=== PATIENT | female | born 1980 | race Caucasian/White ===

== ENCOUNTER 2019-08-03 17:50 | Emergency (ER) | payer OTHER ==
--- NOTE | 2019-08-03 19:16 | EDM.PDOC ---
ED HPI GENERAL MEDICAL PROBLEM - General Chief Complaint: Abdominal Pain Stated Complaint: STOMACH PAIN Time Seen by Provider: 08/03/19 19:11 Source of Information: Reports: Patient History Limitations: Reports: No Limitations - History of Present Illness INITIAL COMMENTS - FREE TEXT/NARRATIVE: 89-year-old female presents the ED with a 2 day history of intermittent severe abdominal cramping pain associated with yellow high-volume diarrhea stool loss. Associated nausea with no vomiting. Diarrhea improved today after taking Imodium AD earlier this am. Cramps have returned tonight and her much worse than they were. They seem to return about every one half hour. No blood in the diarrhea. Has not been able to eat all day. Did not eat much yesterday. Feels weak dizzy and lightheaded with standing. Previous abdominal surgery is that of a cholecystectomy appendectomy and 3. And is usually normal. 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 Onset: Sudden Onset Date: 08/02/19 Duration: Day(s):, Colic, Getting Worse, Intermittent Location: Reports: Abdomen Quality: Reports: Ache, Sharp, Stabbing, Other (On intermittent colicky midabdominal pain and left lower quadrant abdominal pain.) Severity: Moderate (8 out of 10 when the pain is severe.) Improves with: Reports: Medication Worsens with: Reports: None Context: Reports: Sick Contact. Denies: Activity, Exercise, Lifting, Trauma, Other (Children at the daycare center that she works at.) Associated Symptoms: Reports: Fever/Chills, Loss of Appetite, Malaise, Nausea/ Vomiting, Weakness (Diarrhea lightheaded and dizzy with standing), Other. 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 (see below) (Imodium A-D when necessary) Abdomen Pain Score (Numeric/FACES): 10 - Related Data Allergies Allergy/AdvReac Type Severity Reaction Status Date / Time amoxicillin [Amoxicillin] Allergy Hives Verified 08/03/19 18:28 clindamycin Allergy Burning Verified 08/03/19 18:28 codeine Allergy Hives Verified 08/03/19 18:28 Penicillins Allergy Hives Verified 08/03/19 18:28 venom-honey bee Allergy Anaphylactic Verified 08/03/19 18:28 [bee venom (honey bee)] Shock Home Meds: Home Meds Levothyroxine Sodium [Synthroid] 75 mcg PO DAILY 02/23/14 [History] EPINEPHrine [Epipen] 0.3 mg IM ASDIRECTED PRN #1 pen 03/28/14 [Rx] Dicyclomine [Bentyl] 20 mg PO Q6H PRN #12 tablet 08/03/19 [Rx] Omeprazole Magnesium [Prilosec Otc] 20 mg PO DAILY 08/03/19 [History] 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: Endocrine/Metabolic History: Reports: Hypothyroidism - Infectious Disease History Infectious Disease History: Reports: Chicken Pox - Past Surgical History HEENT Surgical History: Reports: Adenoidectomy, Myringotomy w Tube(s), Tonsillectomy GI Surgical History: Reports: Appendectomy, Cholecystectomy Female Surgical History: Reports: Section (3.), Other (See Below) Other Female Surgeries/Procedures: cervical biopsy Musculoskeletal Surgical History: Reports: Shoulder Surgery Social & Family History - Family History Family Medical History: Noncontributory - Tobacco Use Smoking Status *Q: Never Smoker Second Hand Smoke Exposure: No - Caffeine Use Caffeine Use: Reports: Soda - Recreational Drug Use Recreational Drug Use: Yes - Living Situation & Occupation Living situation: Reports: Occupation: Employed ED ROS GENERAL - Review of Systems Review Of Systems: See Below Constitutional: Reports: Chills, Malaise, Weakness, Fatigue, Decreased Appetite HEENT: Reports: No Symptoms Respiratory: Reports: No Symptoms Cardiovascular: Reports: No Symptoms Endocrine: Reports: Fatigue GI/Abdominal: Reports: Abdominal Pain, Diarrhea (See history of present illness) , Nausea. Denies: Hematochezia, Vomiting : Reports: No Symptoms Musculoskeletal: Reports: Other (Treatment lower extremity cramping pain for several weeks predating the current illness) Skin: Reports: No Symptoms Neurological: Reports: No Symptoms Psychiatric: Reports: No Symptoms Hematologic/Lymphatic: Reports: No Symptoms Immunologic: Reports: No Symptoms ED EXAM, GI/ABD - Physical Exam Exam: See Below Exam Limited By: No Limitations General Appearance: Alert, WD/WN, No Apparent Distress, Other (Vital signs show she is afebrile at 37.1. Rate is 89 and sinus. Respiratory is 19 pulse ox 100% BP 146/95.) Eyes: Bilateral: Normal Appearance Throat/Mouth: Other (No scleral icterus or for pallor.) Head: Atraumatic ( Tongue is mildly dry and coated), Normocephalic Neck: Normal Inspection, Supple, Non-Tender, Full Range of Motion. No: Lymphadenopathy (L), Lymphadenopathy (R) Respiratory/Chest: No Respiratory Distress, Lungs Clear, Normal Breath Sounds, Chest Non-Tender Cardiovascular: Normal Peripheral Pulses, Regular Rate, Rhythm, No Edema, No Gallop, No Murmur, No Rub GI/Abdominal Exam: Normal Bowel Sounds, Soft, Tender. No: Guarding, Rigid, Rebound (Ali tender left lower quadrant without rebound or guarding) Extremities: Normal Inspection, Normal Range of Motion, Non-Tender Neurological: Alert, Oriented, CN II-XII Intact, Normal Cognition Psychiatric: Normal Affect, Normal Mood Skin Exam: Warm, Dry, Intact, Normal Color, No Rash Course - Vital Signs Last Recorded V/S: Last Vital Signs Temp 37.1 C 08/03/19 18:26 Pulse 89 08/03/19 18:26 Resp 19 08/03/19 18:26 BP 146/95 H 08/03/19 18:26 Pulse Ox 100 08/03/19 18:26 Orthostatic Blood Pressure [ 132/101 Standing] Orthostatic Blood Pressure [ 132/88 Sitting] Orthostatic Blood Pressure [ 108/67 Supine] - Orders/Labs/Meds Orders: Active Orders 24 hr Category Date Time Status Orthostatic Vital Signs [RC] ASDIRECTED Care 08/03/19 19:20 Active Abdomen 1V Flat [CR] Stat Exams 08/03/19 19:18 Taken Dextrose 5%-0.9% NaCl [Dextrose 5%-Normal Saline] 1,000 Med 08/03/19 19:30 Active ml IV ASDIRECTED Ketorolac [Toradol] Med 08/03/19 19:30 Active 30 mg IVPUSH ONETIME Medication Orders Dextrose/Sodium Chloride (Dextrose 5%-Normal Saline) 1,000 mls @ 999 mls/hr IV ASDIRECTED OLIVER Last Admin: 08/03/19 20:11 Dose: 500 mls/hr Ketorolac Tromethamine (Toradol) 30 mg IVPUSH ONETIME OLIVER Last Admin: 08/03/19 20:10 Dose: 30 mg Labs: Laboratory Tests 08/03/19 08/03/19 08/03/19 Range/Units 20:04 20:04 20:04 WBC 8.82 (3.98-10.04) K/mm3 RBC 4.87 (3.98-5.22) M/mm3 Hgb 14.6 (11.2-15.7) gm/dl Hct 44.8 (34.1-44.9) % MCV 92.0 (79.4-94.8) fl MCH 30.0 (25.6-32.2) pg MCHC 32.6 (32.2-35.5) g/dl RDW Std Deviation 46.1 (36.4-46.3) fL Plt Count 269 (182-369) K/mm3 MPV 10.0 (9.4-12.3) fl Neut % (Auto) 59.5 (34.0-71.1) % Lymph % (Auto) 29.0 (19.3-51.7) % Yell % (Auto) 11.0 (4.7-12.5) % Eos % (Auto) 0.3 L (0.7-5.8) Baso % (Auto) 0.1 (0.1-1.2) % Neut # (Auto) 5.24 (1.56-6.13) K/mm3 Lymph # (Auto) 2.56 (1.18-3.74) K/mm3 Yell # (Auto) 0.97 H (0.24-0.36) K/mm3 Eos # (Auto) 0.03 L (0.04-0.36) K/mm3 Baso # (Auto) 0.01 (0.01-0.08) K/mm3 Sodium 141 (136-145) mEq/L Potassium 3.8 (3.5-5.1) mEq/L Chloride 105 (98-107) mEq/L Carbon Dioxide 24 (21-32) mEq/L Anion Gap 15.8 H (5-15) BUN 9 (7-18) mg/dL Creatinine 0.8 (0.55-1.02) mg/dL Est Cr Clr Drug Dosing 89.26 mL/min Estimated GFR (MDRD) > 60 (>60) mL/min BUN/Creatinine Ratio 11.3 L (14-18) Glucose 98 (74-106) mg/dL Calcium 8.9 (8.5-10.1) mg/dL Magnesium 1.9 (1.8-2.4) mg/dl Total Bilirubin 0.4 (0.2-1.0) mg/dL AST 164 H (15-37) U/L ALT 113 H (14-59) U/L Alkaline Phosphatase 69 (46-116) U/L C-Reactive Protein 1.3 H* (<1.0) mg/dL Total Protein 7.3 (6.4-8.2) g/dl Albumin 3.5 (3.4-5.0) g/dl Globulin 3.8 gm/dL Albumin/Globulin Ratio 0.9 L (1-2) Lipase 62 L (73-393) U/L Meds: Medications Generic Name Dose Route Start Last Admin Trade Name Frevalerie PRN Reason Stop Dose Admin Dextrose/Sodium Chloride 1,000 mls @ 999 mls/hr 08/03/19 19:30 08/03/19 20:11 Dextrose 5%-Normal Saline IV 500 mls/hr ASDIRECTED OLIVER Administration Ketorolac Tromethamine 30 mg 08/03/19 19:30 08/03/19 20:10 Toradol IVPUSH 30 mg ONETIME OLIVER Administration Discontinued Medications Generic Name Dose Route Start Last Admin Trade Name Frevalerie PRN Reason Stop Dose Admin Dicyclomine HCl 20 mg 08/03/19 21:29 08/03/19 21:56 Bentyl PO 08/03/19 21:30 20 mg ONETIME ONE Administration Hydromorphone HCl 1 mg 08/03/19 21:28 08/03/19 21:56 Dilaudid IVPUSH 08/03/19 21:29 1 mg ONETIME ONE Administration Ondansetron HCl 4 mg 08/03/19 19:19 08/03/19 20:11 Zofran IVPUSH 08/03/19 19:20 4 mg ONETIME ONE Administration - Radiology Interpretation Free Text/Narrative:: 39-year-old female attends the ER with her . She admits that she's been ill for the last 2 days with quite severe diarrhea yesterday i.e. large-volume yellow water stool losses which continues today. Associated intermittent severe abdominal cramping pain about every 30 minutes. Has not been able to eat much or drink much at all for 2 days. Diarrhea improved transiently after taking Imodium AD this morning and some Pepto-Bismol tonight. Social mild chills but no fever. 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 Plan orthostatic BP. IV D5 normal saline at open. Zofran 4 mg IV with Toradol 30 mg IV relief. One of the abdomen to be obtained with routine labs. - Re-Assessments/Exams Free Text/Narrative Re-Assessment/Exam: 08/03/19 20:49 Labs reveal a normal white count at 8.82. Operative shows 59% neutrophils. Hemoglobin is 14.6 with hematocrit of 44.8. He platelet count is 269,000. Sodium was 141 with potassium of 3.8 chloride 105 with a bicarbonate of 24. And a gap is minimally elevated at 15.8. BUNs 9 with a creatinine of 0.8. EGFR is greater than 60. Glucose is 98. Calcium was 8.9. Magnesium is normal at 1.9 Total bilirubin is 0.4 with an AST slightly elevated 164 and ALT of 113. Alk phosphatase is normal at 69. C-reactive protein is 1.3. Total protein is 7.3 with an albumin fraction of 3.5. Lipase is normal at 62. IV fluids are running at 500 mils per hour as the nurses only able to establish a 22-gauge IV. I will allow her to complete a full liter of IV fluids. Abdominal x -ray reveals some subtle stool in the right hemicolon but no signs of significant constipation. The remainder the colon contains air with no signs of bowel obstruction. There is evidence of contrast in the right hemicolon from previous contrast study of the abdomen. 08/03/19 21:59 Patient has completed a liter of IV fluids. She still experiencing intermittent abdominal cramping pain and therefore was given Dilaudid 1 mg IV for further pain relief. I'm going to give her Bentyl 20 mg by mouth as well. Prescription will be written for the same medication to be taken one tablet of 20 mg strength every 6 hours as needed. She is to avoid all dairy products and no apple juice or grape juice until stools are formed back up. Advise clear fluid diet such as Gatorade/ Powerade advance to light diet as tolerated. Departure - Departure Time of Disposition: 22:00 Disposition: Home, Self-Care 01 Condition: Fair Clinical Impression: Viral gastroenteritis - Discharge Information *PRESCRIPTION DRUG MONITORING PROGRAM REVIEWED*: Not Applicable *COPY OF PRESCRIPTION DRUG MONITORING REPORT IN PATIENT JAYDON: Not Applicable Prescriptions: Dicyclomine [Bentyl] 20 mg PO Q6H PRN #12 tablet PRN Reason: relief of abdominal cramping Instructions: Viral Gastroenteritis, Adult, [id number] Referrals: Irene Nevarez PA-C [Primary Care Provider] - Forms: ED Department Discharge, ED Return to Work/School Form Additional Instructions: Evaluation in the emergency room today in regards to recurrent diffuse abdominal cramping pain associated with yellow high-volume watery diarrhea since yesterday. Imodium right ear taken earlier today seem to help a good deal to relieve the pain but often once it wears off the cramping is much worse than normal. Emanation of your abdomen did not reveal any signs of a surgical abdomen. X-ray of the abdomen also proved to be relatively normal. Signs of bowel obstruction related to previous surgeries. Lab work also proved to be normal. You were treated with a liter of IV fluids in the emergency room and medication called Zofran for nausea relief and initial dose of Toradol 30 mg IV for pain relief. However it seemed to wear off within the hour and you therefore were given a dose of Dilaudid 1 mg IV to further relieve abdominal cramping pain and an oral dose of Bentyl 20 mg by mouth. You may continue Bentyl use 20 mg every 6 hours needed for relief of abdominal cramping pain. The daily treatment is staying on clear fluids such as Gatorade or Powerade for the next 12-24 hours. Suggest 5-6 ounces per hour sipped. When feeling hungry try soda crackers first and if tolerated may use Jell-O at any time. May then try GM on white bread for hunger relief. May then advance to soup such as turkey rice/chicken noodle soup. Avoid all dairy products and no apple juice or grape juice until stools are formed back up. Suggest off work for the next 2 days until you're able to eat a fairly normally and the diarrhea has quit. Sepsis Event Note - Evaluation Sepsis Screening Result: No Definite Risk - Focused Exam Vital Signs: Vital Signs Temp Pulse Resp BP Pulse Ox 08/03/19 18:26 37.1 C 89 19 146/95 H 100 Date Exam was Performed: 08/03/19 Time Exam was Performed: 22:20 - My Orders Last 24 Hours: My Active Orders 08/03/19 19:18 Abdomen 1V Flat [CR] Stat 08/03/19 19:20 Orthostatic Vital Signs [RC] ASDIRECTED 08/03/19 19:30 Dextrose 5%-0.9% NaCl [Dextrose 5%-Normal Saline] 1,000 ml IV ASDIRECTED Ketorolac [Toradol] 30 mg IVPUSH ONETIME - Assessment/Plan Last 24 Hours: My Active Orders 08/03/19 19:18 Abdomen 1V Flat [CR] Stat 08/03/19 19:20 Orthostatic Vital Signs [RC] ASDIRECTED 08/03/19 19:30 Dextrose 5%-0.9% NaCl [Dextrose 5%-Normal Saline] 1,000 ml IV ASDIRECTED Ketorolac [Toradol] 30 mg IVPUSH ONETIME
[2019-08-03] MEDS ORDERED: Ondansetron 4 MG/2 ML SDV IVPUSH ONE (19:19)
[2019-08-03] MEDS ORDERED: Ketorolac 30 MG/ML SDV IVPUSH SCH (19:30)
[2019-08-03] MEDS ORDERED: Dextrose 5%-0.9% NaCl 1,000 ML IV SCH (19:30)
[2019-08-03] MEDS ORDERED: HYDROmorphone 1 MG/ML Syringe IVPUSH ONE (21:28)
[2019-08-03] MEDS ORDERED: Dicyclomine 10 MG Cap PO ONE (21:29)
[2019-08-03 22:45] VITALS: BP 141/98; PULSE 72
--- NOTE | 2019-08-04 09:56 | CR ---
Abdomen: Supine view of the abdomen was obtained. Comparison: Prior abdominal x-ray of 06/28/10. Bowel gas pattern appears normal. Calcifications are seen within the pelvis compatible with phleboliths. Increased density noted within the right abdomen above the pelvis which is felt compatible with bowel content. Surgical clips are seen from prior cholecystectomy. Bony structures are unremarkable for the patient's age. Impression: 1. Findings as noted above. 2. Nothing acute is appreciated. Diagnostic code #2 Study was dictated in [place] Standard Time
== END 2019-08-03 22:40 | disposition home or self-care (01) ==
LOC: JD.ED 17:50
DX: A08.4 Viral intestinal infection, unspecified (principal); E03.9 Hypothyroidism, unspecified; Z90.49 Acquired absence of other specified parts of digestive tract; Z88.1 Allergy status to other antibiotic agents; Z88.5 Allergy status to narcotic agent; Z88.0 Allergy status to penicillin; Z91.030 Bee allergy status; Z79.899 Other long term (current) drug therapy
CPT/HCPCS: 36415; 74018; 80053; 83690; 83735; 85025; 86140; 96361; 96374; 96375; 99284; A9270; J1170; J1885; J2405; J7042; 99283

== ENCOUNTER 2019-11-08 10:14 | Emergency (ER) | payer OTHER ==
[2019-11-08] MEDS ORDERED: Sodium Chloride 0.9% 10 ML Syringe FLUSH PRN (10:17)
[2019-11-08 10:23] VITALS: BP 131/82; PULSE 73
--- NOTE | 2019-11-08 10:37 | EDM.PDOCBH ---
<Fina Hannah - Last Filed: 11/08/19 14:03> ED HPI GENERAL MEDICAL PROBLEM - General Chief Complaint: Neurological Problem Stated Complaint: [facility] Time Seen by Provider: 11/08/19 10:17 - Related Data Allergies Allergy/AdvReac Type Severity Reaction Status Date / Time amoxicillin [Amoxicillin] Allergy Hives Verified 11/08/19 10:23 clindamycin Allergy Burning Verified 11/08/19 10:23 codeine Allergy Hives Verified 11/08/19 10:23 Penicillins Allergy Hives Verified 11/08/19 10:23 venom-honey bee Allergy Anaphylactic Verified 11/08/19 10:23 [bee venom (honey bee)] Shock Home Meds: Home Meds Levothyroxine Sodium [Synthroid] 75 mcg PO DAILY 02/23/14 [History] EPINEPHrine [Epipen] 0.3 mg IM ASDIRECTED PRN #1 pen 03/28/14 [Rx] Omeprazole Magnesium [Prilosec Otc] 20 mg PO DAILY 08/03/19 [History] COURSE, BEHAVIORAL HEALTH COMP - Course Vital Signs: Last Vital Signs Temp 97.2 F 11/08/19 10:15 Pulse 73 11/08/19 10:15 Resp 18 11/08/19 10:15 BP 131/82 11/08/19 10:15 Pulse Ox 97 11/08/19 10:15 Orders, Labs, Meds: Active Orders 24 hr Category Date Time Status Cardiac Monitoring [RC] . DIRECTED Care 11/08/19 10:17 Active EKG Documentation Completion [RC] STAT Care 11/08/19 10:17 Active Peripheral IV Care [RC] . DIRECTED Care 11/08/19 10:17 Active Sodium Chloride 0.9% [Saline Flush] Med 11/08/19 10:17 Active 10 ml FLUSH ASDIRECTED PRN Sodium Chloride 0.9% [Saline Flush] Med 11/08/19 11:15 Active 30 ml FLUSH ASDIRECTED Peripheral IV Insertion Adult [OM.PC] Stat Oth 11/08/19 10:17 Ordered Medication Orders Sodium Chloride (Saline Flush) 10 ml FLUSH ASDIRECTED PRN PRN Reason: Keep Vein Open Last Admin: 11/08/19 10:35 Dose: 10 ml Sodium Chloride (Saline Flush) 30 ml FLUSH ASDIRECTED OLIVER Last Admin: 11/08/19 11:37 Dose: 30 ml Laboratory Tests 11/08/19 11/08/19 11/08/19 Range/Units 10:25 10:25 11:10 WBC 11.35 H (3.98-10.04) K/mm3 RBC 4.53 (3.98-5.22) M/mm3 Hgb 13.7 (11.2-15.7) gm/dl Hct 42.3 (34.1-44.9) % MCV 93.4 (79.4-94.8) fl MCH 30.2 (25.6-32.2) pg MCHC 32.4 (32.2-35.5) g/dl RDW Std Deviation 46.1 (36.4-46.3) fL Plt Count 255 (182-369) K/mm3 MPV 10.3 (9.4-12.3) fl Neut % (Auto) 66.0 (34.0-71.1) % Lymph % (Auto) 27.8 (19.3-51.7) % Cooper % (Auto) 5.2 (4.7-12.5) % Eos % (Auto) 0.6 L (0.7-5.8) Baso % (Auto) 0.2 (0.1-1.2) % Neut # (Auto) 7.50 H (1.56-6.13) K/mm3 Lymph # (Auto) 3.15 (1.18-3.74) K/mm3 Cooper # (Auto) 0.59 H (0.24-0.36) K/mm3 Eos # (Auto) 0.07 (0.04-0.36) K/mm3 Baso # (Auto) 0.02 (0.01-0.08) K/mm3 PT 10.7 (9.7-12.0) SECONDS INR 0.98 APTT 24 (22-31) SECONDS Sodium 139 (136-145) mEq/L Potassium 3.6 (3.5-5.1) mEq/L Chloride 107 (98-107) mEq/L Carbon Dioxide 21 (21-32) mEq/L Anion Gap 14.6 (5-15) BUN 14 (7-18) mg/dL Creatinine 0.8 (0.55-1.02) mg/dL Est Cr Clr Drug Dosing 89.26 mL/min Estimated GFR (MDRD) > 60 (>60) mL/min BUN/Creatinine Ratio 17.5 (14-18) Glucose 119 H (74-106) mg/dL Calcium 8.6 (8.5-10.1) mg/dL Total Bilirubin 0.5 (0.2-1.0) mg/dL AST 12 L (15-37) U/L ALT 15 (14-59) U/L Alkaline Phosphatase 55 (46-116) U/L Troponin I < 0.017 (0.00-0.056) ng/mL Total Protein 7.0 (6.4-8.2) g/dl Albumin 3.3 L (3.4-5.0) g/dl Globulin 3.7 gm/dL Albumin/Globulin Ratio 0.9 L (1-2) Medications Generic Name Dose Route Start Last Admin Trade Name Jayme PRN Reason Stop Dose Admin Sodium Chloride 10 ml 11/08/19 10:17 11/08/19 10:35 Saline Flush FLUSH 10 ml ASDIRECTED PRN Administration Keep Vein Open Sodium Chloride 30 ml 11/08/19 11:15 11/08/19 11:37 Saline Flush FLUSH 30 ml ASDIRECTED OLIVER Administration Discontinued Medications Generic Name Dose Route Start Last Admin Trade Name Johnq PRN Reason Stop Dose Admin Gadobenate Dimeglumine 20 ml 11/08/19 11:13 11/08/19 11:37 Multihance IVPUSH 11/08/19 11:14 20 ml ONETIME ONE Administration Ondansetron HCl 4 mg 11/08/19 10:57 11/08/19 11:01 Zofran IVPUSH 11/08/19 10:58 4 mg ONETIME ONE Administration Re-Assessment/Re-Exam: Informed by the nurses of unequal pupil size and reduced reaction. Examined patient's pupils. The right is size 3 mm and the left is 4 mm. The right has greater reaction than the left. The patient states she has blurriness in the right. She has states this started when the ambulance crew came to pick her up. She has never had this before. Departure - Departure Disposition: DC/Tfer to [facility] 02 Clinical Impression: Dizziness, Blurred vision, Vision changes Nausea & vomiting Qualifiers: Vomiting type: unspecified Vomiting Intractability: non-intractable Qualified Code(s): R11.2 - Nausea with vomiting, unspecified - Discharge Information Referrals: Irene Nevarez PA-C [Primary Care Provider] - Forms: ED Department Discharge Sepsis Event Note - Focused Exam Vital Signs: Vital Signs Temp Pulse Resp BP Pulse Ox 11/08/19 10:15 97.2 F 73 18 131/82 97 Date Exam was Performed: 11/08/19 Time Exam was Performed: 14:03 - My Orders Last 24 Hours: My Active Orders 11/08/19 10:17 Cardiac Monitoring [RC] . DIRECTED EKG Documentation Completion [RC] STAT Peripheral IV Care [RC] . DIRECTED Sodium Chloride 0.9% [Saline Flush] 10 ml FLUSH ASDIRECTED PRN Peripheral IV Insertion Adult [OM.PC] Stat 11/08/19 11:15 Sodium Chloride 0.9% [Saline Flush] 30 ml FLUSH ASDIRECTED - Assessment/Plan Last 24 Hours: My Active Orders 11/08/19 10:17 Cardiac Monitoring [RC] . DIRECTED EKG Documentation Completion [RC] STAT Peripheral IV Care [RC] . DIRECTED Sodium Chloride 0.9% [Saline Flush] 10 ml FLUSH ASDIRECTED PRN Peripheral IV Insertion Adult [OM.PC] Stat 11/08/19 11:15 Sodium Chloride 0.9% [Saline Flush] 30 ml FLUSH ASDIRECTED <Mauricio Du - Last Filed: 11/08/19 14:38> ED HPI GENERAL MEDICAL PROBLEM - General Source of Information: Reports: Patient, EMS History Limitations: Reports: No Limitations - History of Present Illness INITIAL COMMENTS - FREE TEXT/NARRATIVE: The patient presents by [facility] for unresponsive episode, nausea, vomiting and headache. She has been having neck pain for about 4 weeks. She has been seeing her chiropractor for care and today she went for an adjustment. She had it done and she felt some pain and relief right away. She went to take care of some things with her children at school and she developed a headache and had an unresponsive episode. She then had generalized weakness. They got her to sit up and then she had nausea and vomiting. She has a generalized headache now and generalized weakness. She has nausea. She has no fever, chills, cough, chest pain, shortness of breath or abdominal pain. She has never had this happen before. Her says next month she is going to see a surgeon about her neck. Onset: Sudden Duration: Minutes: Location: Reports: Generalized Improves with: Reports: None Worsens with: Reports: None Associated Symptoms: Reports: Headaches, Nausea/Vomiting. 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: Endocrine/Metabolic History: Reports: Hypothyroidism - Infectious Disease History Infectious Disease History: Reports: Chicken Pox - Past Surgical History HEENT Surgical History: Reports: Adenoidectomy, Myringotomy w Tube(s), Tonsillectomy GI Surgical History: Reports: Appendectomy, Cholecystectomy Female Surgical History: Reports: Section (3.), Other (See Below) Other Female Surgeries/Procedures: cervical biopsy Musculoskeletal Surgical History: Reports: Shoulder Surgery Social & Family History - Family History Family Medical History: Noncontributory - Caffeine Use Caffeine Use: Reports: Soda - Living Situation & Occupation Living situation: Reports: Occupation: Employed ED ROS GENERAL - Review of Systems Review Of Systems: See Below Constitutional: Reports: Weakness HEENT: Reports: No Symptoms Respiratory: Reports: No Symptoms Cardiovascular: Reports: No Symptoms Endocrine: Reports: No Symptoms GI/Abdominal: Reports: Nausea, Vomiting. Denies: Abdominal Pain : Reports: No Symptoms Musculoskeletal: Reports: No Symptoms Neurological: Reports: Headache, Weakness (Generalized) ED EXAM, BEHAVIORAL HEALTH - Physical Exam Exam: See Below Exam Limited By: No Limitations General Appearance: Alert, No Apparent Distress Ears: Normal External Exam Nose: Normal Inspection Head: Atraumatic, Normocephalic Neck: Normal Inspection, Tender Lateral Respiratory/Chest: No Respiratory Distress, Lungs Clear, Normal Breath Sounds Cardiovascular: Regular Rate, Rhythm, No Edema, No Murmur GI/Abdominal: Soft, Non-Tender, No Organomegaly, No Mass Back Exam: Normal Inspection Extremities: Normal Inspection Neurological: Alert, No Motor/Sensory Deficits, Oriented x 3 EKG INTERPRETATION EKG Date: 11/08/19 Time: 11:41 Rhythm: NSR Rate (Beats/Min): 66 Brilliant: Normal P-Wave: Present QRS: Normal ST-T: Normal QT: Normal COURSE, BEHAVIORAL HEALTH COMP - Course Re-Assessment/Re-Exam: A stroke alert was called. I went into the room right away and examined the patient. I ordered a CT of her head, EKG, labs and an MRA of her neck. Her EKG shows a NSR with no acute changes. Her WBC was elevated at 11.35. Her PT and PTT look good. Her CMP looks good. Her troponin is negative. Her CT shows nothing acute. I did get her in for an MRA of her neck and it shows right vertebral artery is diminutive in size with little if no blood supplied from the right vertebral artery into the basilar artery. Uncertain if this finding on the right side is chronic or acute, although most likely is developmental. I called [facility] in [place] to talk with neurology. I talked with Dr Pa and he wanted her sent to the ER. I talked with Dr Lopez and he accepted the patient. He wanted me to talk to the neurosurgeon. I talked to him and he wanted me to talk to [facility] in [place]. I waited well over an hour to hear back and I talked with Dr Powell the neurologist and he did not want any heparin. He does want further testing done that will be done at [facility] in [place]. I called them back and Dr Lopez was okay with me sending her now. Departure - Departure Time of Disposition: 14:40 Condition: Serious Sepsis Event Note - Evaluation Sepsis Screening Result: No Definite Risk - Focused Exam Date Exam was Performed: 11/08/19 Time Exam was Performed: 14:34
--- NOTE | 2019-11-08 10:52 | CT ---
Head CT Technique: Multiple axial sections through the brain were obtained. Intravenous contrast was not utilized. Comparison: No prior intracranial imaging is available. Findings: Ventricles along with basal cisterns and sulci over the convexities are within normal limits for the patient's age. No abnormal parenchymal densities are seen. No evidence of intracranial hemorrhage. No midline shift or mass-effect is appreciated. Visualized mastoid sinuses and paranasal sinuses show nothing acute. No acute calvarial abnormality is appreciated. Impression: 1. Nothing acute is appreciated on noncontrast head CT exam. Diagnostic code #1 This report was dictated in MDT
[2019-11-08] MEDS ORDERED: Ondansetron 4 MG/2 ML SDV IVPUSH ONE (10:57)
[2019-11-08] MEDS ORDERED: Gadobenate Dimeglumine 529 MG/ML 20 ML SDV IVPUSH ONE (11:13)
[2019-11-08] MEDS ORDERED: Sodium Chloride 0.9% 10 ML Syringe FLUSH SCH (11:15)
--- NOTE | 2019-11-08 12:12 | MR ---
MR angiogram of neck Technique: Postcontrast MR angiogram study of the neck was obtained. Findings: Dominant left vertebral artery is seen. Left vertebral artery is patent into the basilar artery. Right vertebral artery is diminutive in size with little if no blood supplied from the right vertebral artery into the basilar artery. Uncertain if this finding on the right side is chronic or acute, although most likely is developmental. Common carotid arteries as well as external and internal carotid arteries appear patent. No discrete dissection is seen. Impression: 1. Diminutive size of the right vertebral artery as described above. 2. MR angiogram study of the neck is otherwise unremarkable. Diagnostic code #3 This report was dictated in MDT
[2019-11-08] MEDS ORDERED: HYDROmorphone 0.5 MG/0.5 ML Syringe IVPUSH ONE (14:54)
[2019-11-08] MEDS ORDERED: Metoclopramide 10 MG/2 ML SDV IVPUSH ONE (15:31)
[2019-11-08] MEDS ORDERED: Metoclopramide 10 MG/2 ML SDV ONE (15:32)
== END 2019-11-08 15:35 ==
LOC: JD.ED 10:14
DX: H53.8 Other visual disturbances (principal); R11.2 Nausea with vomiting, unspecified; R42 Dizziness and giddiness
CPT/HCPCS: 36415; 70450; 70548; 80053; 84484; 85025; 85610; 85730; 93005; 96374; 96375; 99285; A9577; J1170; J2405; J2765; 93010; 99284

== ENCOUNTER 2022-04-17 13:58 | Emergency (ER) | payer OTHER ==
[2022-04-17 14:21] VITALS: BP 132/75; PULSE 87
[2022-04-17] MEDS: Potassium Chloride 10 MEQ in Premix Bag 1 BAG IV SCH ×4 (15:43→19:40)
[2022-04-17] MEDS ORDERED: Sodium Chloride 0.9% 1,000 ML IV SCH (15:45)
== END 2022-04-17 21:05 | disposition home or self-care (01) ==
LOC: JD.ED 13:58
DX: E87.6 Hypokalemia (principal); I10 Essential (primary) hypertension; E03.9 Hypothyroidism, unspecified; Z88.0 Allergy status to penicillin; Z88.1 Allergy status to other antibiotic agents; Z88.5 Allergy status to narcotic agent; Z91.030 Bee allergy status; Z79.899 Other long term (current) drug therapy
CPT/HCPCS: 96365; 96366; 99284; J3480; J7030

== ENCOUNTER 2022-06-17 20:45 | Emergency (ER) | payer OTHER ==
[2022-06-17 22:50] VITALS: BP 149/111; PULSE 111
[2022-06-18 00:21] LABS: CORONAVIRUS COVID-19 NAA NEGATIVE (NEGATIVE)
[2022-06-18] MEDS ORDERED: Acetaminophen/HYDROcodone 325-5 MG Tab PO ONE (00:41)
== END 2022-06-18 01:22 | disposition home or self-care (01) ==
LOC: JD.ED 20:45
DX: J10.1 Influenza due to other identified influenza virus with other respiratory manifestations (principal); I10 Essential (primary) hypertension; E03.9 Hypothyroidism, unspecified; Z88.0 Allergy status to penicillin; Z88.1 Allergy status to other antibiotic agents; Z88.5 Allergy status to narcotic agent; Z91.030 Bee allergy status; Z79.899 Other long term (current) drug therapy; Z20.822 Contact with and (suspected) exposure to COVID-19
CPT/HCPCS: 0241U; 99283; A9270-GY

== ENCOUNTER 2024-02-29 15:31 | Emergency (ER) | payer OTHER ==
[2024-02-29 17:01] LABS: APPEARANCE,URINE SLT CLOUDY (Clear); BILIRUBIN,URINE 1+ (Negative); COLOR,URINE YELLOW (Yellow); GLUCOSE,URINE NEGATIVE (Negative); KETONES,URINE 2+ (Negative); LEUKOCYTE ESTERASE,URINE NEGATIVE (Negative); NITRITE,URINE NEGATIVE (Negative); OCCULT BLOOD,URINE NEGATIVE (Negative); PROTEIN,URINE NEGATIVE (Negative); UROBILINOGEN,URINE 0.2 (0.2-1.0)
[2024-02-29 18:00] LABS: BASOPHILS PERCENT AUTO 0.3 % (0.0-1.0); EOSINOPHILS ABSOLUTE AUTO 0.3 K/mm3 (0.0-0.4); EOSINOPHILS PERCENT AUTO 2.7 % (0.0-6.0); HEMATOCRIT 41.9 % (37.0-47.0); IMMATURE GRAN ABSOLUTE AUTO 0.03 K/mm3 (0.00-0.05); IMMATURE GRAN PERCENT AUTO 0.3 % (0.0-0.4); LYMPHOCYTES ABSOLUTE AUTO 2.8 K/mm3 (1.0-4.8); LYMPHOCYTES PERCENT AUTO 24.7 % (24.0-44.0); MEAN CORPUSCULAR HEMOGLOBIN 30.8 pg (28.0-32.0); MEAN CORPUSCULAR HGB CONC 33.4 g/dl (32.0-36.0); MEAN CORPUSCULAR VOLUME 92.3 fl (83.0-99.0); MEAN PLATELET VOLUME 10.8 fl (9.4-12.3); MONOCYTES ABSOLUTE AUTO 1.1 K/mm3 (0.0-0.8); MONOCYTES PERCENT AUTO 9.4 % (0.0-8.0); NEUTROPHILS ABSOLUTE AUTO 7.1 K/mm3 (1.8-7.7); NEUTROPHILS PERCENT AUTO 62.6 % (41.0-71.0); PLATELET COUNT,PLT 255 K/mm3 (150-400); RED BLOOD CELL COUNT 4.54 M/mm3 (4.10-5.30); WHITE BLOOD CELL COUNT,WBC 11.34 K/mm3 (3.9-11.3)
[2024-02-29] MEDS: Ondansetron 4 MG/2 ML SDV IVPUSH ONE (18:07)
[2024-02-29] MEDS: Lactated Ringers 1,000 ML IV ONE ×2 (18:07→19:33)
[2024-02-29] MEDS: Iopamidol 612 MG/ML 100 ML Bottle IVPUSH ONE (18:23)
[2024-02-29 18:24] LABS: LACTIC ACID 0.9 mmol/L (0.4-2.0)
[2024-02-29 18:30] LABS: ALBUMIN 3.4 g/dl (3.4-5.0); ANION GAP 12.8 (5-15); BILIRUBIN TOTAL 0.4 mg/dL (0.2-1.0); BUN/CREATININE RATIO 8.8 (14-18); C-REACTIVE PROTEIN 0.92 mg/dL (<0.30); CALCIUM 8.7 mg/dL (8.5-10.1); CREATININE 0.8 mg/dL (0.55-1.02); EST CRCL DRUG DOSING (CG) 82.43 mL/min; MAGNESIUM 1.2 mg/dL (1.8-2.4); POTASSIUM,K 2.8 mEq/L (3.5-5.1); PROTEIN TOTAL,TP 6.7 g/dl (6.4-8.2)
[2024-02-29] MEDS: Sodium Chloride 0.9% 10 ML Syringe FLUSH PRN (19:33)
[2024-02-29] MEDS: Magnesium Sulfate/Water 2 GM in Premix Bag 1 BAG IV ONE (19:33)
[2024-02-29] MEDS: Potassium Chloride 10 MEQ in Premix Bag 1 BAG IV SCH (19:33)
[2024-02-29] MEDS: Potassium Chloride 20 MEQ Tab.ER PO ONE (19:34)
[2024-02-29] MEDS: Magnesium Oxide 400 MG Tab PO ONE (19:34)
[2024-02-29] MEDS: Loperamide 2 MG Cap PO ONE (21:09)
[2024-02-29] MEDS: predniSONE 20 MG Tab PO ONE (21:17)
[2024-02-29] MEDS: Sodium Chloride 0.9% 1,000 ML IV SCH (21:17)
[2024-03-01 00:41] VITALS: BP 120/74; PULSE 80
== END 2024-03-01 00:41 | disposition home or self-care (01) ==
LOC: JD.ED 15:31
DX: R19.7 Diarrhea, unspecified (principal); I10 Essential (primary) hypertension; K21.9 Gastro-esophageal reflux disease without esophagitis; E66.9 Obesity, unspecified; E03.9 Hypothyroidism, unspecified; Z90.49 Acquired absence of other specified parts of digestive tract; Z79.899 Other long term (current) drug therapy; Z79.82 Long term (current) use of aspirin; Z79.890 Hormone replacement therapy; Z88.0 Allergy status to penicillin; Z88.1 Allergy status to other antibiotic agents; Z88.5 Allergy status to narcotic agent; Z91.030 Bee allergy status; Z68.39 Body mass index [BMI] 39.0-39.9, adult
CPT/HCPCS: 36415; 74177; 80053; 81003; 82947; 83605; 83690; 83735; 85025; 86140; 87045; 87046; 87493; 87899; 93005; 96365; 96366; 96367; 96368; 96375; 99284; A9270; J2405; J3475; J3480; J3490; J7030; J7120; J7512; Q9967; 93010